=== PATIENT | male | born 1960 | race Hispanic/Latino ===

== ENCOUNTER 2019-09-01 18:30 | Emergency (ER) | payer OTHER ==
[~2019-09-01 18:30] MED LIST: LISI-617 PO
== END 2019-09-01 20:24 | disposition home or self-care (01) ==
LOC: EDH 18:30
DX: M25.562 Pain in left knee (principal); Z72.0 Tobacco use
CPT/HCPCS: 99281

== ENCOUNTER 2019-09-17 11:48 | Emergency (ER) | payer BC, OTHER ==
[2019-09-17] MEDS ORDERED: TRAMADOL HCL 50 MG TABLET ONE (12:49)
== END 2019-09-17 13:01 | disposition home or self-care (01) ==
LOC: EDH 11:48
DX: M25.561 Pain in right knee (principal); Z98.890 Other specified postprocedural states; Z72.0 Tobacco use
CPT/HCPCS: 73562

== ENCOUNTER → 2019-12-31 | Outpatient (CLI) | payer BC | END | disposition home or self-care (01) | LOC: RAH 13:26 | PROVIDERS: ATTEND Registered Nurse Registered Nurse First Assistant | DX: M79.604 Pain in right leg (principal); D48.0 Neoplasm of uncertain behavior of bone and articular cartilage | CPT/HCPCS: 93971 ==